=== PATIENT | female | born 1985 | race Two or more races ===

== ENCOUNTER 2016-06-07 09:23 | Emergency (ER) | payer SELFPAY ==
--- NOTE | 2016-06-07 09:44 | ER Document Report ---
ED Medical Screen (RME) - General Chief Complaint: Abdominal Pain Stated Complaint: STOMACH PAIN Notes: 30-year-old female reports onset of right upper lateral abdominal pain started yesterday afternoon. She thinks she had fever last night. She does report she started doing aerobic exercises a few days ago which is a new thing. Brief exam shows there is no epigastric tenderness, there is no right upper quadrant tenderness in the region of the gallbladder. There is considerable tenderness to palpate the right lateral upper abdomen when pushing into the abdominal muscle wall. There is no sensitivity to the skin or subcutaneous fat. There is no skin rash. I have greeted and performed a rapid initial assessment of this patient. A comprehensive ED assessment and evaluation of the patient, analysis of test results and completion of the medical decision making process will be conducted by additional ED providers. TRAVEL OUTSIDE OF THE [place] IN LAST 30 DAYS: No - Related Data Allergies/Adverse Reactions: No Known Allergies Allergy (Verified 06/07/16 09:27) Past Medical History Renal/ Medical History: Denies: Hx Peritoneal Dialysis Physical Exam - Vital signs Vitals: Temp Pulse Resp BP Pulse Ox 98.1 F 80 16 143/101 H 99 06/07/16 09:28 06/07/16 09:28 06/07/16 09:28 06/07/16 09:28 06/07/16 09:28 Course - Vital Signs Vital signs: Temp Pulse Resp BP Pulse Ox 98.1 F 80 16 143/101 H 99 06/07/16 09:28 06/07/16 09:28 06/07/16 09:28 06/07/16 09:28 06/07/16 09:28
--- NOTE | 2016-06-07 10:02 | ER Document Report ---
ED General - General TRAVEL OUTSIDE OF THE [place] IN LAST 30 DAYS: No <JAMIL ROBERTSON - Last Filed: 06/07/16 10:01> - General Mode of Arrival: Ambulatory Information source: Patient <COLIN BUTT - Last Filed: 06/07/16 11:06> - General Chief Complaint: Abdominal Pain Stated Complaint: STOMACH PAIN Notes: This is a 30-year-old female who presents with right mid lateral abdominal pain starting yesterday morning. She describes it just as "pain". There are no associated symptoms. She denies nausea vomiting diarrhea dysuria hematuria. There are no alleviating factors. There is some exacerbation by movement. Denies cough URI symptoms or pleuritic type discomfort. She has not had this pain before. She has started some aerobic exercise recently. She awoke with the pain yesterday morning. She reports a fever yesterday of 100F. Denies rash. (DAQUANCOLIN) - Related Data Allergies/Adverse Reactions: No Known Allergies Allergy (Verified 06/07/16 09:27) Past Medical History - Social History Patient has suicidal ideation: No Patient has homicidal ideation: No Renal/ Medical History: Denies: Hx Peritoneal Dialysis <NILSA ROBERTSONELLE - Last Filed: 06/07/16 10:01> - Social History Smoking Status: Never Smoker Family History: None - Past Medical History Cardiac Medical History: Denies: Hx Coronary Artery Disease, Hx Hypertension, Hx Pulmonary Embolism GI Medical History: Reports: None Past Surgical History: Reports: Hx Hysterectomy. Denies: Hx Abdominal Surgery <DAQUANCOLIN Littlejohn - Last Filed: 06/07/16 11:06> Review of Systems - Review of Systems Constitutional: No symptoms reported EENT: No symptoms reported Cardiovascular: No symptoms reported Respiratory: No symptoms reported Gastrointestinal: No symptoms reported Genitourinary: No symptoms reported Female Genitourinary: No symptoms reported Musculoskeletal: No symptoms reported Skin: No symptoms reported Hematologic/Lymphatic: No symptoms reported Neurological/Psychological: No symptoms reported -: Yes All other systems reviewed and negative <DAQUANCOLIN - Last Filed: 06/07/16 11:06> Physical Exam <ROBERTSONJAMIL - Last Filed: 06/07/16 10:01> - Vital signs Interpretation: Hypertensive <COLIN BUTT - Last Filed: 06/07/16 11:06> - Vital signs Vitals: Temp Pulse Resp BP Pulse Ox 98.1 F 80 16 143/101 H 99 06/07/16 09:28 06/07/16 09:28 06/07/16 09:28 06/07/16 09:28 06/07/16 09:28 - Notes Notes: GENERAL: VS as per nursing doc. Well-appearing, well-nourished and in no acute distress. HEAD: Atraumatic, normocephalic. EYES: Pupils equal round and reactive to light, extraocular movements intact, sclera anicteric, no conjunctival injection or discharge. ENT: Nares patent, oropharynx clear without exudates, moist mucous membranes. NECK: Normal range of motion, supple without lymphadenopathy. LUNGS: Breath sounds clear to auscultation bilaterally and equal. No wheezes rales or rhonchi. HEART: Regular rate and rhythm without murmurs. ABDOMEN: Soft, normoactive bowel sounds. No guarding, no rebound. No masses appreciated. No Register sign. There is significant tenderness in the right mid abdomen in the anterior axillary line. No mass or deformity noted. No adjacent rib tenderness. BACK: No CVA tenderness. EXTREMITIES: Normal range of motion, no calf tenderness, no edema. NEUROLOGICAL: Cranial nerves grossly intact. Normal speech. Normal sensory and motor exams. No gross cerebellar abnormalities. PSYCH: Normal mood, normal affect. SKIN: Warm, dry, normal turgor, no lesions noted. No shingles rash (COLIN BUTT) Course <JAMIL ROBERTSON - Last Filed: 06/07/16 10:01> - Laboratory Result Diagrams: 06/07/16 10:10 06/07/16 10:10 <COLIN BUTT Annetta - Last Filed: 06/07/16 11:06> - Re-evaluation Re-evalutation: 06/07/16 11:01 I discussed the differential with the patient including muscular causes, liver gallbladder, urinary tract dysfunction, appendicitis. Clinically it seems more consistent with muscular pain. Less likely would be related to the other is with her normal white blood cell count, liver function studies being normal. Discussed CT scan for further evaluation but at this point we have deferred as she would prefer conservative treatment understands return to the emergency department warning signs. (COLIN BUTT) - Vital Signs Vital signs: Temp Pulse Resp BP Pulse Ox 98.1 F 80 16 143/101 H 99 06/07/16 09:28 06/07/16 09:28 06/07/16 09:28 06/07/16 09:28 06/07/16 09:28 - Laboratory Laboratory results interpreted by me: 06/07/16 06/07/16 10:10 10:10 RBC 5.57 H MCV 78 L MCH 25.7 L RDW 15.1 H Seg Neutrophils % 38.0 L Lymphocytes % 51.0 H Urine Blood MODERATE H Urine Ascorbic Acid 40 H Discharge <JAMIL ROBERTSON - Last Filed: 06/07/16 10:01> <COLIN BUTT - Last Filed: 06/07/16 11:06> - Discharge Clinical Impression: Abdominal pain Condition: Good Disposition: HOME, SELF-CARE Instructions: Abdominal Pain ([facility]) Additional Instructions: You have been diagnosed with abdominal pain.~ Currently, there is no identified emergent medical condition.~ Though most causes of abdominal pain resolve naturally with time, please return immediately if you are worsening, develop fever > 100.5, or for other concern. You have been seen in the Emergency Department for evaluation to identify and treat any emergent medical conditions.~ Though all emergent medical conditions are evaluated, it is impossible to evaluate all conditions in the Emergency Department setting. As such, a follow-up appointment with a physician/medical provider and obtaining regular medical care is mandatory.~ You will need to establish a primary care physician for these reasons. If you have difficulty obtaining a primary care physician, please contact your insurance company.~ If you are uninsured and have difficulty, you should contact a rifle case repairer or consider care through your [facility]. Prescriptions: Naproxen Sodium [Anaprox Ds] 550 mg PO BID PRN #20 tablet PRN Reason: For Pain Forms: Elevated Blood Pressure Scribe Attestation: 06/07/16 11:04 I personally performed the services described in the documentation, reviewed and edited the documentation which was dictated to the scribe in my presence, and it accurately records my words and actions. (COLIN BUTT)
[2016-06-07 10:33] LABS: ABSOLUTE LYMPHOCYTES (AUTO) 2.4 10^3/uL (0.5-4.7); ABSOLUTE MONOCYTES (AUTO) 0.5 10^3/uL (0.1-1.4); ABSOLUTE NEUT (AUTO) 1.8 10^3/uL (1.7-8.2); BASOPHILS % (AUTO) 0.5 % (0-2); EOSINOPHILS % (AUTO) 0.8 % (0-6); HEMATOCRIT 43.4 % (36.0-47.0); HEMOGLOBIN 14.3 g/dL (12.0-15.5); HGB HCT DIFFERENCE -0.5; MEAN CORPUSCULAR HEMOGLOBIN 25.7 pg (27.0-33.4); MEAN CORPUSCULAR HGB CONC 32.9 g/dL (32.0-36.0); MEAN CORPUSCULAR VOLUME 78 fl (80-97); MONOCYTES % (AUTO) 9.7 % (3-13); RED BLOOD COUNT 5.57 10^6/uL (3.72-5.28); RED CELL DISTRIBUTION WIDTH 15.1 % (11.5-14.0); WHITE BLOOD COUNT 4.8 10^3/uL (4.0-10.5)
[2016-06-07 10:45] LABS: APPEARANCE,URINE SLIGHTLY-CLOUDY; BILIRUBIN,URINE NEGATIVE (NEGATIVE); GLUCOSE, URINE NEGATIVE (NEGATIVE); KETONES,URINE NEGATIVE (NEGATIVE); LEUKOCYTE ESTERASE,URINE NEGATIVE (NEGATIVE); NITRITE,URINE NEGATIVE (NEGATIVE); PROTEIN,URINE NEGATIVE (NEGATIVE); URINE SPECIFIC GRAVITY 1.021; UROBILINOGEN,URINE NEGATIVE mg/dL (<2.0)
[2016-06-07 10:50] LABS: ALANINE AMINOTRANSFERASE 24 U/L (9-52); ALBUMIN 4.7 g/dL (3.5-5.0); ALKALINE PHOSPHATASE 83 U/L (38-126); ANION GAP 14 (5-19); ASPARTATE AMINO TRANSFERASE 18 U/L (14-36); BILIRUBIN,DIRECT 0.2 mg/dL (0.0-0.4); BILIRUBIN,TOTAL 0.5 mg/dL (0.2-1.3); BLOOD UREA NITROGEN 10 mg/dL (7-20); CALCIUM 9.6 mg/dL (8.4-10.2); CARBON DIOXIDE 26 mmol/L (22-30); CHLORIDE 104 mmol/L (98-107); CREATINE KINASE 62 U/L (30-135); CREATININE RESULT 0.55 mg/dL (0.52-1.25); GLUCOSE 95 mg/dL (75-110); POTASSIUM 4.4 mmol/L (3.6-5.0); SODIUM 143.8 mmol/L (137-145); TOTAL PROTEIN 8.1 g/dL (6.3-8.2)
[2016-06-07 11:15] VITALS: BP 118/79
== END 2016-06-07 11:15 | disposition home or self-care (01) ==
LOC: ER 09:23
DX: R10.9 Unspecified abdominal pain (principal); Z90.710 Acquired absence of both cervix and uterus
CPT/HCPCS: 36415; 80053; 81001; 81025; 82550; 85025; 99284